=== PATIENT | male | born 1965 | race Two or more races ===

== ENCOUNTER 2019-08-11 18:19 | Emergency (ER) | payer SELFPAY ==
[~2019-08-11] VITALS: Ht 167.6 cm; Wt 95.0 kg
[2019-08-11] MEDS ORDERED: DEXAMETHASONE 4 MG TABLET PO STA (19:11)
[2019-08-11] MEDS ORDERED: IPRATRPIUM/ALBUTEROL 0.5/2.5MG 3 ML NEBU. NEB STA (19:11)
[2019-08-11] MEDS ORDERED: ALBU2.5V8 IH (19:15)
[2019-08-11] MEDS ORDERED: METH4TAB2 PO (19:15)
[2019-08-11] MEDS ORDERED: ONDA4TAB12 PO (19:15)
--- NOTE | 2019-08-11 19:15 | PHYS DOC ---
Past Medical History Past Medical History: No Pertinent History (CHRISTEL SHELTON APRN) Past Surgical History: No Surgical History (CHIRSTEL SHELTON APRN) Alcohol Use: None (CHRISTEL SHELTON APRN) Attending Signature I have participated in the care of this patient and I have reviewed and agree with all pertinent clinical information above including history, exam, and recommendations. (VADIM SANTIAGO MD) Adult General Chief Complaint Chief Complaint: HEADACHE HPI HPI Patient is a 53 year old male who presents with fever, loss of appetite, body aches, nausea, sore throat, runny nose, cough, and diarrhea that started on Friday. Patient has been able to drink water at home. Patient has been using Tylenol for fever control. Complete ROS were reviewed and found to be within normal limits, except as documented in the HPI (CHRISTEL SHELTON APRN) Current Medications Current Medications Current Medications Medications (Trade) Dose Ordered Sig/Marisol Start Time Stop Time Status Last Admin Dose Admin Albuterol/ Ipratropium (Duoneb) 3 ml 1X STAT 08/11/19 19:11 08/11/19 19:13 DC 08/11/19 19:56 3 ML Dexamethasone (Decadron) 10 mg 1X STAT 08/11/19 19:11 08/11/19 19:13 DC 08/11/19 19:55 10 MG (VADIM SANTIAGO MD) Allergies Allergies Allergies Coded Allergies Type Severity Reaction Last Updated Verified No Known Drug Allergies 08/11/19 No (VADIM SANTIAGO MD) Physical Exam Physical Exam Constitutional: Well developed, well nourished, no acute distress, non-toxic appearance. [] HENT: Normocephalic, atraumatic, bilateral external ears normal, oropharynx mois t, no oral exudates, nose normal. [] Eyes: PERRLA, EOMI, conjunctiva normal, no discharge. [] Neck: Normal range of motion, no tenderness, supple, no stridor. [] Cardiovascular:Heart rate regular rhythm, no murmur [] Lungs & Thorax: Bilateral breath sounds have mild diffuse wheezing. Abdomen: Bowel sounds normal, soft, no tenderness, no masses, no pulsatile masses. [] Skin: Warm, dry, no erythema, no rash. [] Neurologic: Alert and oriented X 3, normal motor function, normal sensory f unction, no focal deficits noted. [] Psychologic: Affect normal, judgement normal, mood normal. [] (CHRISTEL SHELTON APRN) Current Patient Data Vital Signs Vital Signs Date Time Temp Pulse Resp B/P (MAP) Pulse Ox O2 Delivery O2 Flow Rate FiO2 08/11/19 20:03 82 96 08/11/19 19:56 Room Air 08/11/19 18:31 99.6 18 120/80 (93) 99.6 (VADIM SANTIAGO MD) EKG EKG [] (CHRISTEL SHELTON APRN) Radiology/Procedures Radiology/Procedures [] (CHRISTEL SHELTON APRN) Course & Med Decision Making Course & Med Decision Making Pertinent Labs and Imaging studies reviewed. (See chart for details) The patient appears to have the Flu clinically. Discussed with patient the im portance of drinking plenty of fluids. I also discussed the importance of rest. It was discussed with the patient that she is contagious and to stay away from others until it has been a week since the start of her symptoms. Discussed with the patient that she can take Zyrtec per label instructions for runny nose. Also discussed the proper control of fever by rotating Tylenol and Ibuprofen at home. Will give the patient Decadron in the ER for symptom control. Will also prescribe Zofran for nausea. (CHRISTEL SHELTON APRN) Dragon Disclaimer Dragon Disclaimer This electronic medical record was generated, in whole or in part, using a voice recognition dictation system. (CHRISTEL SHELTON APRN) Departure Departure Impression: Primary Impression: Viral syndrome Disposition: 01 HOME, SELF-CARE Condition: STABLE Referrals: NO PCP (PCP) Patient Instructions: Influenza A (H1N1) Additional Instructions: Thank you for visiting [facility]. We appreciate you trusting us with your care. If any additional problems come up don't hesitate to return to visit us. Please follow up with your primary care provider so they can plan additional care if needed and know about the problem that you had. If symptoms worsen come back to the Emergency Department. Any concerning symptoms that start such as chest pain, shortness of air, weakness or numbness on one side of the body, running high fevers or any other concerning symptoms return to the ER. Please fill your medications at any pharmacy and follow the prescription instructions. Please drink plenty of fluids. If unable to keep fluids down please return to ER. Please get Tylenol and Ibuprofen over the counter. Give each medication every 6 hours as directed by the medication labels. In order to utilize the peak of the medications stagger the medications to where the child is getting one of the medications every 3 hours. For example if you give Ibuprofen at 3 PM, you then give Tylenol at 6 PM and Ibuprofen again at 9 PM, and then Tylenol at midnight. Please get Zyrtec over the counter and take per label instructions for runny nose. Scripts Ondansetron (ONDANSETRON ODT) 4 Mg Tab.rapdis 1 TAB PO PRN Q6-8HRS PRN for NAUSEA, #16 TAB Prov: CHRISTEL SHELTON APRN 08/11/19 Methylprednisolone (MEDROL) 4 Mg Tab.ds.pk 1 PKG PO UD, #1 PKG Prov: CHRISTEL SHELTON APRN 08/11/19 Albuterol Sulfate (PROAIR HFA INHALER) 8.5 Gm Hfa.aer.ad 2 PUFF IH PRN Q4-6HRS PRN for wheezing for 21 Days, #1 INHALER 0 Refills Prov: CHRISTEL SHELTON APRN 08/11/19 CHRISTEL SHELTON APRN Aug 11, 2019 19:15 VADIM SANTIAGO MD Aug 12, 2019 04:10
[2019-08-11 20:03] VITALS: BP 129/80
== END 2019-08-11 20:05 | disposition home or self-care (01) ==
LOC: ER 18:19
DX: B34.9 Viral infection, unspecified (principal)
CPT/HCPCS: 94640; 99283; J7620; J8540